=== PATIENT | female | born 2000 | race Caucasian/White ===

== ENCOUNTER 2022-05-13 15:36 | Inpatient (IN) | payer OTHER ==
[~2022-05-13] VITALS: Ht 157.5 cm; Wt 61.7 kg
[2022-05-13] MEDS ORDERED: MISOPROSTOL 100MCG TABLET VG PRN (21:45)
[2022-05-13] MEDS ORDERED: LIDOCAINE HCL 1% 10 MG/ML 10ML VIAL IJ SCH (21:45)
[2022-05-13] MEDS ORDERED: NALOXONE HCL 0.4 MG/ML 1ML VIAL IM PRN (21:45)
[2022-05-13] MEDS ORDERED: METHYLERGONOVINE MALEATE 0.2 MG/ML IM PRN (21:45)
[2022-05-13] MEDS ORDERED: MISOPROSTOL 100MCG TABLET VG SCH (21:45)
[2022-05-13] MEDS ORDERED: CARBOPROST TROMETHAMINE 250 MCG/ML AMPUL IM PRN (21:45)
[2022-05-13 22:05] LABS: CLARITY URINE CLEAR (CLEAR); COLOR URINE YELLOW (YELLOW); KETONES URINE TRACE (NEGATIVE); LEUKOCYTE ESTERASE URINE 1+ (NEGATIVE); NITRITE URINE NEGATIVE (NEGATIVE); OCCULT BLOOD URINE NEGATIVE (NEGATIVE); PROTEIN URINE TRACE (NEGATIVE); SPECIFIC GRAVITY URINE 1.021 (1.005-1.030)
[2022-05-13 22:12] LABS: BASOPHILS % 0.2 % (0.0-2.0); EOSINOPHILS % 0.3 % (0.0-5.0); HEMATOCRIT. 38.1 % (36.0-48.0); HEMOGLOBIN. 12.9 g/dL (12.0-16.0); LYMPHOCYTES % 15.7 % (20.0-50.0); MEAN CORPUSCULAR HEMOGLOBIN 30.8 pg (28.0-32.0); MEAN CORPUSCULAR VOLUME 90.9 fL (81.0-99.0); MEAN PLATELET VOLUME 10.7 fl (7.4-10.4); MONOCYTES % 6.9 % (2.0-8.0); NEUTROPHILS % 76.9 % (40.0-76.0); PLATELET 150 x1000/uL (130-400); RED BLOOD CELL COUNT 4.19 mill/uL (4.2-5.4); RED CELL DISTRIBUTION WIDTH 13.8 % (11.6-14.6)
[2022-05-13 22:20] LABS: *AMPHETAMINES SCREEN URINE NEGATIVE (NEGATIVE); *BARBITURATES SCREEN URINE NEGATIVE (NEGATIVE); *BENZODIAZEPINES SCREEN URINE NEGATIVE (NEGATIVE); *COCAINE SCREEN URINE NEGATIVE (NEGATIVE); CANNABINOID URINE SCREEN NEGATIVE (NEGATIVE); METHADONE URINE SCREEN NEGATIVE (NEGATIVE); OPIATES URINE SCREEN NEGATIVE (NEGATIVE); PHENCYCLIDINE URINE SCREEN NEGATIVE (NEGATIVE)
[2022-05-13 22:22] LABS: INR 0.9; PARTIAL THROMBOPLASTIN TIME 29.9 sec (23.4-31.0); PROTHROMBIN TIME 9.8 sec (9.6-11.0)
[2022-05-13] MEDS: LACTATED RINGERS 1,000 ML IV SCH (22:29)
[2022-05-13 22:45] LABS: HEPATITIS B SURFACE ANTIGEN NEGATIVE
[2022-05-14] MEDS ORDERED: ROPIVACAINE HCL/PF EPIDURAL 200 ML EPI SCH (15:00)
[2022-05-14] MEDS ORDERED: ONDANSETRON HCL 4MG/2ML INJ IV PRN (15:00)
[2022-05-14] MEDS ORDERED: METOCLOPRAMIDE HCL 10MG/2ML VIAL IV PRN (15:00)
[2022-05-14] MEDS: OXYTOCIN 30 UNITS/500ML NS PMX 500 ML IV SCH (16:12)
[2022-05-14] MEDS: LACTATED RINGERS 1,000 ML IV SCH (16:13)
[2022-05-14] MEDS ORDERED: BUTORPHANOL TARTRATE 2 MG/ML VIAL IV PRN (20:40)
[2022-05-15] MEDS ORDERED: LIDOCAINE HCL 1% 10 MG/ML 10ML VIAL IJ SCH (01:30)
[2022-05-15] MEDS: OXYTOCIN 30 UNITS/500ML NS PMX 500 ML IV SCH (02:19)
[2022-05-15 03:30] VITALS: BP 108/61
[2022-05-15] MEDS ORDERED: RHO(D) IMMUNE GLOBULIN 300 MCG/SYR IM PRN (04:15)
[2022-05-15] MEDS ORDERED: IBUPROFEN 400MG TABLET PO PRN (04:15)
[2022-05-15] MEDS ORDERED: OXYTOCIN 30 UNITS/500ML NS PMX 500 ML IV SCH (04:15)
[2022-05-15] MEDS ORDERED: LANOLIN OINT 7GM TUBE TOP PRN (04:15)
[2022-05-15] MEDS ORDERED: METHYLERGONOVINE MALEATE 0.2 MG/ML IM PRN (04:15)
[2022-05-15] MEDS ORDERED: IBUPROFEN 800MG TABLET PO PRN (04:15)
[2022-05-15 08:30] VITALS: BP 114/57
[2022-05-15] MEDS: PRENATAL VIT/FE FUMARATE/FA TABLET PO SCH (09:05)
[2022-05-15 16:43] VITALS: BP 96/60
[2022-05-15 19:30] VITALS: BP 119/66
[2022-05-16 04:00] VITALS: BP 111/69
[2022-05-16 07:09] LABS: BASOPHILS % 0.2 % (0.0-2.0); EOSINOPHILS % 0.7 % (0.0-5.0); HEMATOCRIT. 32.1 % (36.0-48.0); HEMOGLOBIN. 10.8 g/dL (12.0-16.0); LYMPHOCYTES % 15.1 % (20.0-50.0); MEAN CORPUSCULAR HEMOGLOBIN 31.1 pg (28.0-32.0); MONOCYTES % 6.9 % (2.0-8.0); NEUTROPHILS % 77.1 % (40.0-76.0); PLATELET 139 x1000/uL (130-400); RED BLOOD CELL COUNT 3.49 mill/uL (4.2-5.4); RED CELL DISTRIBUTION WIDTH 13.9 % (11.6-14.6)
[2022-05-16 08:00] VITALS: BP 116/61
[2022-05-16] MEDS: PRENATAL VIT/FE FUMARATE/FA TABLET PO SCH (08:23)
[2022-05-16 15:30] VITALS: BP 102/66
[2022-05-16 20:00] VITALS: BP 106/53
[2022-05-17 04:00] VITALS: BP 111/76
[2022-05-17 08:00] VITALS: BP 99/57
[2022-05-17] MEDS: PRENATAL VIT/FE FUMARATE/FA TABLET PO SCH (08:10)
== END 2022-05-17 12:40 | disposition home or self-care (01) | DRG 560 ==
LOC: 8 EST LDRP 15:36 → OBSVTOIN 15:36 → 8EST 05-15 03:30
PROVIDERS: ADMIT Obstetrics & Gynecology; ATTEND Obstetrics & Gynecology
PROC: 10E0XZZ Delivery of Products of Conception, External Approach (ICD-10-PCS; principal; 2022-05-15)
PROC: 0KQM0ZZ Repair Perineum Muscle, Open Approach (ICD-10-PCS; 2022-05-15)
DX: O69.81X0 Labor and delivery complicated by cord around neck, without compression, not applicable or unspecified (principal); Z37.0 Single live birth; D62 Acute posthemorrhagic anemia; O48.0 Post-term pregnancy; Z20.822 Contact with and (suspected) exposure to COVID-19; O70.1 Second degree perineal laceration during delivery; Z3A.40 40 weeks gestation of pregnancy
CPT/HCPCS: 36415; 76805; 76818; 80305; 81003; 85025; 86592; 86703; 86762; 86850; 86900; 87340; 87426; 99281; G0378; J0595; J3490; J2590